=== PATIENT | male | born 1980 | race Two or more races ===

== ENCOUNTER 2018-07-26 08:52 | Emergency (ER) | payer OTHER ==
[2018-07-26 08:57] VITALS: BP 109/97; PULSE 79; TEMP 97.4; BMI 24.4
[2018-07-26] MEDS ORDERED: KETOROLAC TROMETHAMINE 60 MG/2 ML VIAL IM ONE (10:27)
[2018-07-26] MEDS ORDERED: KETOROLAC TROMETHAMINE 60 MG/2 ML VIAL ONE (10:28)
--- NOTE | 2018-07-26 10:33 | PDOC ---
History of Present Illness - General Chief Complaint: Pain Stated Complaint: FOOT PAIN Time Seen by Provider: 07/26/18 10:11 History Source: Patient Exam Limitations: Clinical Condition - History of Present Illness Initial Comments: 07/26/18 10:28 Patient with no significant past medical history present with complaint of 2 weeks history of pain to right foot over to distal aspect of joint of metatarsal and phalangeal the second to fourth toe of right foot. Patient also reports one-week history of pain and swelling around toenail of left great toe with yellow pus discharge from the side of left great toe. Patient denies trauma or injury to toes or foot. Patient denies any other symptoms. Timing/Duration: other (2 weeks) Past History - Past Medical History Allergies/Adverse Reactions: Allergies Allergy/AdvReac Type Severity Reaction Status Date / Time No Known Allergies Allergy Verified 07/26/18 08:57 Home Medications: Ambulatory Orders Unobtainable Home Med List 0 dose .ROUTE UTDICT 02/10/12 Ibuprofen 800 mg PO Q8H PRN #20 tablet 07/26/18 Mupirocin Ointment [Bactroban 2% Ointment -] 1 applic TP BID #1 tube 07/26/18 Sulfamethoxazole/Trimethoprim [Bactrim Ds -] 1 tab PO BID #14 tablet 07/26/18 COPD: No - Surgical History Abdominal Surgery: Yes (hernia repair) - Suicide/Smoking/Psychosocial Hx Smoking Status: Yes Smoking History: Current every day smoker Number of Cigarettes Smoked Daily: 2 Information on smoking cessation initiated: No Hx Alcohol Use: Yes Drug/Substance Use Hx: No Review of Systems - Review of Systems Able to Perform ROS?: Yes Is the patient limited Mexican proficient: No Constitutional: No: Chills, Fever HEENTM: No: Symptoms Reported Respiratory: No: Symptoms reported Cardiac (ROS): No: Symptoms Reported ABD/GI: No: Nausea, Vomiting Musculoskeletal: Yes: See HPI, Muscle Pain (left great toe and dorsum of right foot), Other (swelling and pain around nailbed of left great toe). No: Gout Integumentary: Yes: See HPI, Change in Color, Erythema (lateral cuticle of left great toe) All Other Systems: Reviewed and Negative *Physical Exam - Vital Signs Last Vital Signs Temp Pulse Resp BP Pulse Ox 97.4 F L 79 14 109/97 97 07/26/18 08:55 07/26/18 08:55 07/26/18 08:55 07/26/18 08:55 07/26/18 08:55 - Physical Exam Comments: 07/26/18 10:31 GENERAL: Well developed, well nourished. Awake and alert. No acute distress. CARDIOVASCULAR: Regular rate and rhythm. No murmurs, rubs, or gallops. PULMONARY: No evidence of respiratory distress. Lungs clear to auscultation bilaterally. No wheezing, rales or rhonchi. ABDOMINAL: Soft. Non-tender. Non-distended. No rebound or guarding. No organomegaly. Normoactive bowel sounds MUSCULOSKELETAL : mild tenderness over dorsum of right foot over MCP joint of the second to fourth toe of right foot. Mild swelling with erythema to lateral aspect of nailbed of left great toe with small discharge from cuticle of the lateral aspect of toe nail of left great toe. No bony deformities NEUROLOGICAL: Alert, awake, appropriate. No motor deficits in the lower extremities. Gait is normal without ataxia. PSYCHIATRIC: Cooperative. Good eye contact. Appropriate mood and affect. General Appearance: Yes: Nourished, Appropriately Dressed, Mild Distress Moderate Sedation - Procedure Monitoring Vital Signs: Procedure Monitoring Vital Signs Temperature 97.4 F L 07/26/18 08:55 Pulse Rate 79 07/26/18 08:55 Respiratory Rate 14 07/26/18 08:55 Blood Pressure 109/97 07/26/18 08:55 O2 Sat by Pulse Oximetry (%) 97 07/26/18 08:55 ED Treatment Course - RADIOLOGY Radiology Studies Ordered: Category Date Time Status FOOT-RIGHT [RAD] Stat Radiology 07/26/18 10:27 Ordered Medical Decision Making - Medical Decision Making 07/26/18 10:32 Patient with no significant past medical history present with complaint of 2 weeks history of pain to right foot over to distal aspect of joint of metatarsal and phalangeal the second to fourth toe of right foot. Patient also reports one-week history of pain and swelling around toenail of left great toe with yellow pus discharge from the side of left great toe. no trauma to foot or toe. Exam significant for mild tenderness over dorsum of right foot over MCP joint of the second to fourth toe of right foot. Mild swelling with erythema to lateral aspect of nailbed of left great toe with small discharge from cuticle of the lateral aspect of toe nail of left great toe consistent with paronychia of left great toe. Toradol 60 mg IM ordered for pain. X-ray of right foot ordered to rule out stress fracture of the foot. 07/26/18 11:48 X-ray of left foot shows no acute fracture. Patient symptoms likely for sprain. Patient is stable for discharge on NSAIDs for right foot sprain and topical mupirocin with oral Bactrim antibiotics for paronychia of left great toe with podiatry follow-up as needed. *DC/Admit/Observation/Transfer Diagnosis at time of Disposition: Paronychia of great toe of left foot Sprain of right foot Qualifiers: Encounter type: initial encounter Qualified Code(s): S93.601A - Unspecified sprain of right foot, initial encounter - Discharge Dispostion Disposition: HOME Condition at time of disposition: Stable Decision to Admit order: No - Prescriptions Prescriptions: Ibuprofen 800 mg PO Q8H PRN #20 tablet PRN Reason: foot pain Mupirocin Ointment [Bactroban 2% Ointment -] 1 applic TP BID #1 tube Sulfamethoxazole/Trimethoprim [Bactrim Ds -] 1 tab PO BID #14 tablet - Referrals Referrals: Mynor Mclaughlin MD [Staff Physician] - - Patient Instructions Printed Discharge Instructions: DI for Paronychia Additional Instructions: X-ray shows no fracture. Use symptoms likely from for sprain. Rest right foot and take medications as prescribed. Follow-up referred to podiatry as soon as possible for reassessment - Post Discharge Activity Forms/Work/School Notes: Back to Work
== END 2018-07-26 11:46 | disposition home or self-care (01) ==
LOC: JERFT 08:52
PROC: 3E0233Z Introduction of Anti-inflammatory into Muscle, Percutaneous Approach (ICD-10-PCS; principal; 2018-07-26)
DX: L03.032 Cellulitis of left toe (principal); S93.601A Unspecified sprain of right foot, initial encounter; X58.XXXA Exposure to other specified factors, initial encounter; Y93.89 Activity, other specified; Y92.89 Other specified places as the place of occurrence of the external cause; Y99.8 Other external cause status
CPT/HCPCS: 73630-TC-RT-FY; 96372; 99281-25

== ENCOUNTER 2019-01-15 09:20 | Emergency (ER) | payer OTHER ==
[2019-01-15 09:26] VITALS: BP 115/73; PULSE 102; TEMP 100.1; BMI 26.4
[2019-01-15] MEDS ORDERED: KETOROLAC TROMETHAMINE 60 MG/2 ML VIAL IM ONE (09:33)
[2019-01-15] MEDS ORDERED: KETOROLAC TROMETHAMINE 30 MG/1 ML VIAL ONE (09:34)
[2019-01-15] MEDS ORDERED: DEXAMETHASONE SOD PHOSPHATE 10 MG/1 ML VIAL ONE (09:34)
--- NOTE | 2019-01-15 10:12 | PDOC ---
History of Present Illness - General Chief Complaint: Sore Throat Stated Complaint: FEVER/SORE THROAT Time Seen by Provider: 01/15/19 09:26 History Source: Patient Exam Limitations: No Limitations - History of Present Illness Associated Symptoms: reports: fever/chills. denies: cough, diaphoresis, headaches, loss of appetite, malaise, nausea/vomiting, shortness of breath, syncope, weakness Past History - Travel Traveled outside of the country in the last 30 days: No - Past Medical History Allergies/Adverse Reactions: Allergies Allergy/AdvReac Type Severity Reaction Status Date / Time No Known Allergies Allergy Verified 01/15/19 09:26 Home Medications: Ambulatory Orders Amoxicillin - [Amoxicillin 500mg Capsule -] 500 mg PO BID #14 capsule 01/15/19 Ibuprofen 800 mg PO ACDIN 5 Days #15 tablet 01/15/19 COPD: No - Surgical History Abdominal Surgery: Yes (hernia repair) - Suicide/Smoking/Psychosocial Hx Smoking Status: Yes Smoking History: Former smoker Have you smoked in the past 12 months: No Number of Cigarettes Smoked Daily: 2 Information on smoking cessation initiated: No Hx Alcohol Use: Yes Drug/Substance Use Hx: No Review of Systems - Review of Systems Constitutional: Yes: Chills, Fever HEENTM: Yes: Throat Pain. No: Throat Swelling, Difficulty Swallowing Respiratory: No: Cough, Shortness of Breath, Wheezing ABD/GI: No: Nausea Musculoskeletal: Yes: Muscle Pain Neurological: No: Headache, Dizziness *Physical Exam - Vital Signs Last Vital Signs Temp Pulse Resp BP Pulse Ox 100.1 F H 102 H 20 115/73 97 01/15/19 09:23 01/15/19 09:23 01/15/19 09:23 01/15/19 09:01/15/19 09:23 - Physical Exam General Appearance: Yes: Nourished HEENT: positive: EOMI, AHMET, Pharyngeal Erythema, Tonsillar Erythema, Rhinorrhea. 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 intact, Fully Oriented, Alert, Normal Mood/ Affect, Normal Response, Motor Strength 11/13 ED Treatment Course - Medications Given in the ED: ED Medications Discontinued Medications Generic Name Dose Route Start Last Admin Trade Name Teena PRN Reason Stop Dose Admin Ketorolac Tromethamine 30 mg 01/15/19 09:33 01/15/19 09:39 Toradol Injection - IM 01/15/19 09:34 30 mg ONCE ONE Administration Medical Decision Making - Medical Decision Making 38y/o M with bodyaches, fever, sorethroat X 2 days denies BELLE, cough, recent travel former smoker *DC/Admit/Observation/Transfer Diagnosis at time of Disposition: Strep pharyngitis - Discharge Dispostion Disposition: HOME Condition at time of disposition: Stable - Prescriptions Prescriptions: Amoxicillin - [Amoxicillin 500mg Capsule -] 500 mg PO BID #14 capsule Ibuprofen 800 mg PO ACDIN 5 Days #15 tablet - Referrals - Patient Instructions Printed Discharge Instructions: DI for Strep Throat Additional Instructions: Your strep was positive today your influenza test was negative please take antibiotics as prescribed gargle with salt warm water Return to the ER if worsening pain, drooling or change of voice occurs. - Post Discharge Activity Forms/Work/School Notes: Back to Work
[2019-01-15] MEDS ORDERED: AMOXICILLIN 500 MG CAPSULE (FP) PO ONE (10:38)
[2019-01-15] MEDS ORDERED: AMOX TR/POT CLAV 500MG/125MG TABLETS (FP) ONE (10:41)
[2019-01-15] MEDS ORDERED: DEXAMETHASONE SOD PHOSPHATE 10 MG/1 ML VIAL IM ONE (10:43)
== END 2019-01-15 11:01 | disposition home or self-care (01) ==
LOC: JERFT 09:20
PROC: 3E023GC Introduction of Other Therapeutic Substance into Muscle, Percutaneous Approach (ICD-10-PCS; principal; 2019-01-15)
PROC: 3E0233Z Introduction of Anti-inflammatory into Muscle, Percutaneous Approach (ICD-10-PCS; 2019-01-15)
DX: J02.0 Streptococcal pharyngitis (principal); Z87.891 Personal history of nicotine dependence
CPT/HCPCS: 87804; 87880; 96372; 99282-25; J1100